=== PATIENT | male | born 2000 | race Caucasian/White ===

== ENCOUNTER 2020-06-21 19:06 | Emergency (ER) | payer BC ==
--- NOTE | 2020-06-21 19:10 | ERPHSYRPT ---
- History of Present Illness Time Seen by Provider: 06/21/20 19:10 Source: patient Exam Limitations: no limitations Physician History: Is a 20-year-old right-handed white male who was carving pumpkins prior to arrival to the emergency department and accidentally cut the radial side of the base of his index finger. Patient's tetanus status is up-to-date. Timing/Duration: today Quality: painful Severity: mild Location: feet (Left index finger) Possible Causes: other (Accidental laceration) Associated Symptoms: denies symptoms Allergies/Adverse Reactions: No Known Drug Allergies Allergy (Unverified 06/21/20 19:11) Home Medications: Omeprazole 20 mg PO DAILY 06/21/20 [History] Travel Risk - International Travel Have you traveled outside of the country in past 3 weeks: No - Coronavirus Screening Are you exhibiting any of the following symptoms?: No Close contact with a COVID-19 positive Pt in past 14-21 Days: No - Review of Systems Constitutional: No Symptoms Eyes: No Symptoms Ears, Nose, & Throat: No Symptoms Respiratory: No Symptoms Cardiac: No Symptoms Abdominal/Gastrointestinal: No Symptoms Genitourinary Symptoms: No Symptoms Musculoskeletal: Injury (Left index finger laceration) Skin: Other (Laceration to the base of the left index finger) Neurological: No Symptoms Psychological: No Symptoms Hematologic/Lymphatic: No Symptoms Immunological/Allergic: No Symptoms All Other Systems: Reviewed and Negative - Past Medical History Pertinent Past Medical History: No Neurological History: No Pertinent History ENT History: No Pertinent History Cardiac History: No Pertinent History Respiratory History: No Pertinent History Endocrine Medical History: No Pertinent History Musculoskeletal History: No Pertinent History GI Medical History: No Pertinent History History: No Pertinent History Psycho-Social History: No Pertinent History Male Reproductive Disorders: No Pertinent History - Past Surgical History Past Surgical History: No Neuro Surgical History: No Pertinent History Cardiac: No Pertinent History Respiratory: No Pertinent History Gastrointestinal: No Pertinent History Genitourinary: No Pertinent History Musculoskeletal: No Pertinent History Male Surgical History: No Pertinent History - Nursing Vital Signs Nursing Vital Signs: Initial Vital Signs Temperature 98.5 F 06/21/20 19:12 Pulse Rate 86 06/21/20 19:12 Respiratory Rate 16 06/21/20 19:12 Blood Pressure 141/95 06/21/20 19:12 O2 Sat by Pulse Oximetry 100 06/21/20 19:12 Pain Scale Pain Intensity 2 - Physical Exam General Appearance: no apparent distress, alert Eye Exam: PERRL/EOMI Ears, Nose, Throat Exam: normal ENT inspection, moist mucous membranes Neck Exam: normal inspection, non-tender, supple, full range of motion Respiratory Exam: airway intact, No chest tenderness, No respiratory distress Gastrointestinal/Abdomen Exam: No tenderness Rectal Exam: not done Back Exam: normal inspection, normal range of motion, No CVA tenderness, No vertebral tenderness Extremity Exam: normal range of motion, pelvis stable, tenderness (Laceration site base of left index finger) Neurologic Exam: alert, oriented x 3, cooperative, 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 Patient is neurovascularly intact and his tendon function is also intact) Lymphatic Exam: No adenopathy SpO2 Interpretation: normal O2 Delivery: Room Air Procedures - Laceration/Wound Repair Left Lateral Proximal Finger Wound Location: Left, hand (Index finger at the proximal base radial side) Wound Length (cm): 1 Wound's Depth, Shape: superficial Wound Explored: clean (No foreign body noted evaluation was performed to the base in a bloodless field) Irrigated: Yes Hibiclens Prep: Yes Anesthesia: local, 1% Lidocaine Volume Anesthetic (ccs): 2 Wound Repaired With: sutures Suture Size/Type: 4-0, prolene Number of Sutures: 3 Layer Closure?: No Progress: 06/21/20 19:29 Procedure note: No complications patient told procedure well. After the laceration site was closed, the wound was then cleaned again with Hibiclens solution. Bacitracin ointment and Band-Aid was applied. - Course Nursing assessment & vital signs reviewed: Yes Ordered Tests: Medication Summary Discontinued Medications Generic Name Dose Route Start Last Admin Trade Name Freq PRN Reason Stop Dose Admin Lidocaine HCl Confirm 06/21/20 19:12 Xylocaine 1% Hcl 20 Ml Mdv Administered 06/21/20 19:13 Dose 5 ml .ROUTE .STK-MED ONE - Progress Progress: improved - Departure Departure Disposition: Home Clinical Impression: Finger laceration Condition: Stable Critical Care Time: No Additional Instructions: Keep laceration repair site dry for 24 hours. After 24 hours, may wash the site with soap and water. Blot dry use a hairdryer to dry then apply antibiotic ointment of choice and a Band-Aid. Suture removal in 8 to 10 days. Ice pack to site 2-3 times a day over the next 48 hours. May use Tylenol and ibuprofen for pain control.
[2020-06-21] MEDS ORDERED: XYLOCAINE 1% HCL 20 ML MDV ONE (19:12)
[2020-06-21] MEDS ORDERED: XYLOCAINE 1% HCL 20 ML MDV IJ ONE (19:25)
[2020-06-21] MEDS ORDERED: BACIGUENT PACKET TP ONE (19:25)
[2020-06-21 19:37] VITALS: BP 150/90; PULSE 81; O2SAT 99
== END 2020-06-21 19:37 | disposition home or self-care (01) ==
LOC: ED 19:06
DX: S61.211A Laceration without foreign body of left index finger without damage to nail, initial encounter (principal); W45.8XXA Other foreign body or object entering through skin, initial encounter
CPT/HCPCS: 12001; 96372; 99283; A9270-GY